=== PATIENT | male | born 1965 | race African-American/Black ===

== ENCOUNTER 2023-09-09 22:37 | Emergency (ER) | payer SELFPAY ==
[~2023-09-09] VITALS: Ht 188 cm; Wt 117.0 kg
[2023-09-10 00:13] VITALS: BP 135/91; PULSE 80; RESP 14; O2SAT 98
[2023-09-10 01:06] LABS: BASOPHILS % 0.4 % (0.0-2.0); HEMATOCRIT. 43.1 % (42.0-52.0); HEMOGLOBIN. 14.2 g/dL (14.0-18.0); LYMPHOCYTES % 30.8 % (20.0-50.0); MEAN PLATELET VOLUME 7.7 fl (7.4-10.4); MONOCYTES % 8.9 % (2.0-8.0); NEUTROPHILS % 57.9 % (40.0-76.0); PLATELET 291 x1000/uL (130-400); RED BLOOD CELL COUNT 4.74 mill/uL (4.7-6.1); WHITE BLOOD COUNT 10.7 x1000/uL (4.5-11.0)
[2023-09-10 01:27] LABS: ALANINE AMINOTRANSFERASE 10 IU/L (10-49); ALBUMIN 3.5 g/dL (3.2-4.8); ASPARTATE AMINOTRANSFERASE 16 IU/L (<34); BILIRUBIN TOTAL 0.2 mg/dL (0.1-1.0); CALCIUM 8.8 mg/dL (8.7-10.4); CARBON DIOXIDE 24 mEq/L (21-32); CHLORIDE 110 mEq/L (98-107); CREATININE 0.9 mg/dL (0.6-1.3); GLUCOSE 124 mg/dL (70-105); POTASSIUM 3.7 mEq/L (3.5-5.1); PROTEIN TOTAL 7.1 g/dL (6.0-8.3); SODIUM 144 mEq/L (136-145); UREA NITROGEN BLOOD 13 mg/dL (9-23)
[2023-09-10] MEDS ORDERED: ACETAMINOPHEN 325MG TABLET PO STA (01:36)
[2023-09-10] MEDS ORDERED: ONDANSETRON 4MG ODT PO STA (01:36)
[2023-09-10] MEDS ORDERED: ONDA4TAB50 PO (01:51)
[2023-09-10] MEDS ORDERED: ACET-2708 PO (01:51)
[2023-09-10 02:22] VITALS: TEMP 98.2
== END 2023-09-10 02:20 | disposition home or self-care (01) ==
LOC: ER 22:37
DX: A09 Infectious gastroenteritis and colitis, unspecified (principal); R11.2 Nausea with vomiting, unspecified
CPT/HCPCS: 36415; 80053; 85025; 99283